=== PATIENT | male | born 1960 | race Caucasian/White ===

== ENCOUNTER 2017-07-02 22:50 | Inpatient (IN) | payer MEDICAID ==
[~2017-07-02] VITALS: Ht 182.9 cm; Wt 67.9 kg
[~2017-07-02 22:50] MED LIST: IBUP-1573 PO
[2017-07-02] MEDS ORDERED: normal saline 1000ML IV soln IVB ONE (23:20)
[2017-07-02 23:51] LABS: BASOPHILS # (AUTO) 0.1 X10'3 (0-0.2); BASOPHILS % (AUTO) 0.9 % (0-1); EOSINOPHILS # (AUTO) 0.1 X10'3 (0-0.9); HEMOGLOBIN 16.4 g/dl (14.0-17.9); LYMPHOCYTES # (AUTO) 2.9 X10'3 (1.1-4.8); MONOCYTES # (AUTO) 0.5 X10'3 (0-0.9); NEUTROPHILS # (AUTO) 3.7 X10'3 (1.8-7.7); RED CELL DISTRIBUTION WIDTH 12.4 % (11.5-14.5); WHITE BLOOD COUNT 7.3 X10'3 (4.5-11.0)
[2017-07-02 23:54] LABS: EOSINOPHILS % (AUTO) 1.5 % (0-6); LYMPHOCYTES % (AUTO) 40.5 % (21-51); MEAN CORPUSCULAR HGB CONC 34.2 % (33.0-36.5); MEAN CORPUSCULAR VOLUME 102.4 FL (78-98); MEAN PLATELET VOLUME 8.2 FL (7.4-10.4); MONOCYTES % (AUTO) 7.3 % (2-12); NEUTROPHILS % (AUTO) 49.8 % (42-75); PLATELET COUNT 313 X10'3 (140-440); RED BLOOD COUNT 4.69 X10'6 (4.70-6.10)
[2017-07-03 00:05] LABS: ALANINE AMINOTRANSFERASE 52 U/L (12-78); ALBUMIN 3.2 G/DL (3.4-5.0); ALBUMIN/GLOBULIN RATIO 0.6 (1.1-1.5); ALKALINE PHOSPHATASE 104 IU/L (46-116); ANION GAP 7 (8-16); ASPARTATE AMINO TRANSFERASE 78 U/L (10-37); BILIRUBIN,TOTAL 0.2 MG/DL (0.1-1.0); BLOOD UREA NITROGEN 14 MG/DL (7-18); BUN/CREATININE RATIO 14.7 (5.4-32.0); CALCIUM 9.2 MG/DL (8.5-10.1); CHLORIDE 103 MMOL/L (99-107); CREATININE 0.95 MG/DL (0.60-1.10); ETHANOL 0.171 GM/DL (0.0-0.010); GLUCOSE 106 MG/DL (70-104); POTASSIUM 3.8 MMOL/L (3.5-5.1); SODIUM 141 MMOL/L (135-145); TOTAL CARBON DIOXIDE 31.2 MMOL/L (24-32); TOTAL PROTEIN 8.6 G/DL (6.4-8.2); TROPONIN I < 0.04 NG/ML (0.0-0.05); eGFR 81 ML/MIN
[2017-07-03 00:18] LABS: URINE AMPHETAMINE SCREEN POSITIVE (Neg); URINE BARBITUATE SCREEN NEGATIVE (Neg); URINE BENZODIAZEPINES SCREEN NEGATIVE (Neg); URINE CANNABINOID SCREEN POSITIVE (Neg); URINE COCAINE SCREEN NEGATIVE (Neg); URINE METHADONE SCREEN NEGATIVE (Neg); URINE OPIATE SCREEN NEGATIVE (Neg); URINE PHENCYCLIDINE SCREEN NEGATIVE (Neg)
[2017-07-03 00:22] LABS: CREATINE KINASE 147 U/L (39-308)
[2017-07-03 00:28] LABS: COLOR,URINE YELLOW (Yellow); GLUCOSE, URINE NEGATIVE (Neg); KETONES,URINE TRACE mg/dl (Neg); LEUKOCYTE ESTERASE ,URINE NEGATIVE (Neg); NITRITES, URINE NEGATIVE (Neg); OCCULT BLOOD,URINE TRACE-INTACT (Neg); PROTEIN,URINE 30 mg/dl (Neg); UROBILINOGEN,URINE 0.2 E.U/dL (0.2-1.0)
[2017-07-03 00:35] LABS: PARTIAL THROMBOPLASTIN TIME 27 SECONDS (22-32); PROTHROMBIN TIME 10.3 SECONDS (9.0-12.0)
[2017-07-03 00:48] LABS: UA COLLECTION TYPE CLN CATCH MIDSTREAM
[2017-07-03 00:56] LABS: BACTERIA,URINE NONE SEEN /HPF (Neg); CLARITY,URINE CLEAR (Clear); RBC,URINE 0-2 /HPF (0-2); WBC,URINE 0-4 /HPF (0-4)
[2017-07-03 00:57] LABS: SQUAMOUS EPITHELIAL CELL,UR FEW /LPF (FEW)
[2017-07-03] MEDS ORDERED: enoxaparin 100mg/ml syringe SUBCUT ONE (01:05)
[2017-07-03] MEDS ORDERED: normal saline 1000ml 1,000 ML IV ONE (01:20)
[2017-07-03] MEDS ORDERED: NO HOME MEDS (01:23)
[2017-07-03] MEDS ORDERED: normal saline 1000ml 1,000 ML IV SCH (02:02)
[2017-07-03] MEDS ORDERED: potassium Cl 40MEQ/NS 500ml 500 ML IV PRN ×2 (02:05)
[2017-07-03] MEDS ORDERED: thiamine 100mg/ml 2ml inj. IV ONE (02:05)
[2017-07-03] MEDS ORDERED: ipratropium/albuterol 3ml nebule NEB PRN (02:05)
[2017-07-03] MEDS ORDERED: acetaminophen 325mg tablet PO PRN (02:05)
[2017-07-03] MEDS ORDERED: mag hydrox/Alum hydrox/simeth 30ml oral suspension PO PRN (02:05)
[2017-07-03] MEDS ORDERED: dextrose 50%-water 50ml dispensing syringe IV PRN (02:05)
[2017-07-03] MEDS ORDERED: albuterol 2.5 MG/3 ML nebule NEB PRN (02:05)
[2017-07-03] MEDS ORDERED: magnesium 4gm in 100ml NS 100 ML IV PRN (02:05)
[2017-07-03] MEDS ORDERED: LORazepam 2 mg/ml vial IV PRN (02:05)
[2017-07-03] MEDS ORDERED: ondansetron/PF 4mg/2ml inj IV PRN (02:05)
[2017-07-03] MEDS ORDERED: magnesium 2GM in 50ml NS 50 ML IV PRN (02:05)
[2017-07-03] MEDS ORDERED: haloperidol lactate 5mg/ml inj IM PRN (02:05)
[2017-07-03] MEDS ORDERED: potassium Cl 20 mEq SR tablet PO PRN ×2 (02:05)
[2017-07-03] MEDS ORDERED: haloperidol 5mg tablet PO PRN (02:05)
[2017-07-03] MEDS ORDERED: magnesium Cl slow-release 64mg tablet PO PRN (02:05)
[2017-07-03] MEDS ORDERED: magnesium hydroxide 30ml (MOM) UD suspension PO PRN (02:05)
[2017-07-03] MEDS ORDERED: K and/or MAG REPLACEMENT MC SCH (08:00)
[2017-07-03] MEDS ORDERED: heparin, porcine 5000 units/ml vial SQ SCH (08:00)
[2017-07-03 11:35] VITALS: BP 146/103
[2017-07-03] MEDS ORDERED: ATI1T PO (11:36)
[2017-07-03] MEDS ORDERED: THI100T PO (11:36)
[2017-07-03] MEDS ORDERED: MULT-38 PO (11:36)
[2017-07-05] MEDS ORDERED: LORazepam 2 mg/ml vial IV PRN (02:05)
[2017-07-05] MEDS ORDERED: LORazepam 1 MG tablet PO PRN (02:05)
[2017-07-07] MEDS ORDERED: LORazepam 2 mg/ml vial IV PRN (02:05)
[2017-07-07] MEDS ORDERED: LORazepam 1 MG tablet PO PRN (02:05)
== END 2017-07-03 13:28 | disposition home or self-care (01) | DRG 775 ==
LOC: ER 22:52 → ED HOLD 07-03 02:02 → MED 3N 07-03 11:00
PROVIDERS: ADMIT Internal Medicine; ATTEND Internal Medicine
DX: F10.129 Alcohol abuse with intoxication, unspecified (principal); F15.10 Other stimulant abuse, uncomplicated; G89.29 Other chronic pain; M54.9 Dorsalgia, unspecified; W86.8XXA Exposure to other electric current, initial encounter; R94.5 Abnormal results of liver function studies; F12.10 Cannabis abuse, uncomplicated; F17.210 Nicotine dependence, cigarettes, uncomplicated; Y90.0 Blood alcohol level of less than 20 mg/100 ml; Z60.2 Problems related to living alone; Z88.0 Allergy status to penicillin; Y92.89 Other specified places as the place of occurrence of the external cause
CPT/HCPCS: 36415; 70450; 70544; 71045; 80053; 80305; 80320; 81001; 81003; 82140; 82550; 82948; 84484; 85025; 85610; 85730; 87070; 94760; 96360; 96361; 99285; J1644; J3411; J7030